=== PATIENT | male | born 1980 | race Caucasian/White ===

== ENCOUNTER 2020-02-04 16:14 | Emergency (ER) | payer OTHER, SELFPAY ==
[2020-02-04] MEDS ORDERED: HYDROCODONE/APAP 10/325 TAB ONE (17:11)
--- NOTE | 2020-02-04 17:42 | EDPHYS ---
Physician Documentation [facility] Name: Thang Matute Jr Age: 39 yrs Sex: Male : 1980 Arrival Date: 02/04/2020 Time: 16:15 Bed 24 Private MD: ED Physician Amada Eden HPI: 02/03 17:09 This 39 yrs old Male presents to ER via Wheelchair with complaints of Leg ma2 Pain. 17:09 The patient presents with an injury. The complaints affect the right calf. Onset: The ma2 symptoms/episode began/occurred suddenly, 2 hour(s) ago. Associated signs and symptoms: Pertinent negatives fever, numbness, swelling, tingling. Severity of symptoms: At their worst the symptoms were moderate, in the emergency department the symptoms are unchanged. The patient has not experienced similar symptoms in the past. was pushing and pulling at his boat when he felt a pop in right calf and has pain since then, no weakness or any other symptoms . Historical: - Allergies: 16:16 No Known Allergies; aa5 - Home Meds: 16:16 None [Active]; aa5 - PMHx: 16:16 None; aa5 - PSHx: 16:16 R knee; aa5 - Immunization history:: Adult Immunizations unknown. - Social history:: Smoking status: Patient reports the use of cigarette tobacco products, chewing tobacco. - Family history:: not pertinent. ROS: 17:09 Constitutional: Negative for fever, chills, and weight loss. ma2 17:09 All other systems are negative. Exam: 17:09 Constitutional: This is a well developed, well nourished patient who is awake, alert, ma2 and in no acute distress. Chest/axilla: Normal chest wall appearance and motion. Nontender with no deformity. No lesions are appreciated. Cardiovascular: Regular rate and rhythm with a normal S1 and S2. No gallops, murmurs, or rubs. Normal PMI, no JVD. No pulse deficits. Respiratory: Lungs have equal breath sounds bilaterally, clear to auscultation and percussion. No rales, rhonchi or wheezes noted. No increased work of breathing, no retractions or nasal flaring. Abdomen/GI: Soft, non-tender, with normal bowel sounds. No distension or tympany. No guarding or rebound. No evidence of tenderness throughout. Back: No spinal tenderness. No costovertebral tenderness. Full range of motion. MS/ Extremity: right calf is tender, no compartment, achilis tendon is intact, skin is wnl Pulses equal, no cyanosis. Neurovascular intact. Full, normal range of motion. Neuro: Awake and alert, GCS 15, oriented to person, place, time, and situation. Cranial nerves II-XII grossly intact. Motor strength 5/5 in all extremities. Sensory grossly intact. Cerebellar exam normal. Normal gait. Vital Signs: 16:16 Weight 113.4 kg (R); Height 6 ft. 2 in. (187.96 cm) (R); Pain 3/10; aa5 17:01 BP 119 / 90; Pulse 77; Resp 18; Temp 98.0; Pulse Ox 100% on NC; Pain 2/10; zb 18:00 BP 124 / 86; Pulse 66; Resp 16; Pulse Ox 99% on R/A; zb 16:16 Body Mass Index 32.10 (113.40 kg, 187.96 cm) aa5 MDM: 16:26 Patient medically screened. ma2 17:40 Differential diagnosis: closed fracture, contusion. Differential diagnosis: tendonitis. ma2 Data reviewed: vital signs, nurses notes. Counseling: I had a detailed discussion with the patient and/or guardian regarding: the historical points, exam findings, and any diagnostic results supporting the discharge/admit diagnosis, the presence of at least one elevated blood pressure reading (>120/80) during this emergency department visit, the need for outpatient follow up. Response to treatment: the patient's symptoms have markedly improved after treatment. 02/03 16:51 Order name: Tib Fib Right XRAY ma2 Administered Medications: 17:00 Drug: [place] 10 mg-325 mg 1 tabs Route: PO; zb 18:00 Follow up: Response: No adverse reaction; Pain is decreased zb Disposition: 02/04/20 17:41 Discharged to Home. Impression: Muscle spasm of calf - right. muscle tear . - Condition is Stable. - Discharge Instructions: Muscle Strain, [id number]. - Prescriptions for Diclofenac Sodium 75 mg Oral Tablet Sustained Release - take 1 tablet by ORAL route 2 times per day; 30 tablet. - Medication Reconciliation Form, Thank You Letter, Antibiotic Education, Prescription Opioid Use, Work release form form. - Follow up: Private Physician; When: Tomorrow; Reason: Continuance of care. Signatures: Dispatcher [employer] Analilia Joshua RN RN aa5 Amada Eden MD MD ma2 Sol Brasher RN RN zb Corrections: (The following items were deleted from the chart) 18:11 17:41 02/04/2020 17:41 Discharged to Home. Impression: Muscle spasm of calf - right. zb muscle tear . Condition is Stable. Prescriptions for Diclofenac Sodium 75 mg Oral Tablet Sustained Release - take 1 tablet by ORAL route 2 times per day; 30 tablet. and Forms are Medication Reconciliation Form, Thank You Letter, Antibiotic Education, Prescription Opioid Use. Follow up: Private Physician; When: Tomorrow; Reason: Continuance of care. ma2
--- NOTE | 2020-02-04 17:42 | ER ---
Nurse's Notes [facility] Name: Thang Matute Jr Age: 39 yrs Sex: Male : 1980 Arrival Date: 02/04/2020 Time: 16:15 Bed 24 Private MD: Diagnosis: Muscle spasm of calf-right. muscle tear Presentation: 02/03 16:16 Chief complaint: Patient states: "I felt a pop in my calf and it's been hurting since aa5 then and it's hard to walk". Pt c/o pain to right calf. 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 16:16 Onset of symptoms was February 04, 2020 at 12:30. aa5 16:16 Method Of Arrival: Wheelchair aa5 16:16 Acuity: PATRIC 4 aa5 17:00 Coronavirus screen: At this time, the client does not indicate any symptoms associated zb with coronavirus-19. Ebola Screen: No symptoms or risks identified at this time. Initial Sepsis Screen: Does the patient meet any 2 criteria? Does the patient have a suspected source of infection? No. Patient's initial sepsis screen is negative. Risk Assessment: Do you want to hurt yourself or someone else? Patient reports no desire to harm self or others. Historical: - Allergies: 16:16 No Known Allergies; aa5 - Home Meds: 16:16 None [Active]; aa5 - PMHx: 16:16 None; aa5 - PSHx: 16:16 R knee; aa5 - Immunization history:: Adult Immunizations unknown. - Social history:: Smoking status: Patient reports the use of cigarette tobacco products, chewing tobacco. - Family history:: not pertinent. Screenin:51 Abuse screen: Denies threats or abuse. Denies injuries from another. Nutritional zb screening: No deficits noted. Tuberculosis screening: No symptoms or risk factors identified. Fall Risk No fall in past 12 months (0 pts). No secondary diagnosis (0 pts). No IV (0 pts). Ambulatory Aid- Crutches/Cane/Walker (15 pts). Gait- Impaired (20 pts.). Mental Status- Oriented to own ability (0 pts). Total Garcia Fall Scale indicates Low Risk Score (25-44 pts). Fall prevention measures have been instituted. Side Rails Up X 2 Placed close to Nursing Station As available Patient and Family Educated on Fall Prevention Program and strategies. Assessment: 16:35 General: Appears in no apparent distress. uncomfortable, Behavior is calm, cooperative, zb appropriate for age. Pain: Complains of pain in right calf Pain does not radiate. Pain currently is 2 out of 10 on a pain scale. at worst was 10 out of 10 on a pain scale. Quality of pain is described as stabbing, Pain began suddenly, 4 hours ago. Is continuous, Aggravated by increased activity, repositioning, weight bearing. Neuro: Level of Consciousness is awake, alert, obeys commands, Oriented to person, place, time, situation. Cardiovascular: Heart tones S1 S2 present Capillary refill < 3 seconds in bilateral fingers Patient's skin is warm and dry. Respiratory: Airway is patent Respiratory effort is even, unlabored, Respiratory pattern is regular, symmetrical. GI: Abdomen is flat, non-distended, Bowel sounds present X 4 quads. : No signs and/or symptoms were reported regarding the genitourinary system. EENT: Reports ASL for form of communication . Derm: Skin is intact, is healthy with good turgor, Skin is normal. Musculoskeletal: Circulation, motion, and sensation intact. Swelling present in right calf area. 17:30 Reassessment: Patient appears in no apparent distress at this time. Patient and/or zb family updated on plan of care and expected duration. Pain level reassessed. Patient is alert, oriented x 3, equal unlabored respirations, skin warm/dry/pink. pt resting in bed. look more comfortable. 18:00 Reassessment: crutch teaching completed with ASL and demonstration returned. zb Vital Signs: 16:16 Weight 113.4 kg (R); Height 6 ft. 2 in. (187.96 cm) (R); Pain 3/10; aa5 17:01 BP 119 / 90; Pulse 77; Resp 18; Temp 98.0; Pulse Ox 100% on NC; Pain 2/10; zb 18:00 BP 124 / 86; Pulse 66; Resp 16; Pulse Ox 99% on R/A; zb 16:16 Body Mass Index 32.10 (113.40 kg, 187.96 cm) aa5 ED Course: 16:15 Patient arrived in ED. ag5 16:16 Arm band placed on. aa5 16:19 Sol Brasher, RN is Primary Nurse. zb 16:26 Amada Eden MD is Attending Physician. ma2 16:32 Triage completed. aa5 16:52 No provider procedures requiring assistance completed. zb 17:00 Patient has correct armband on for positive identification. Bed in low position. Call zb light in reach. Side rails up X 1. Door closed. Noise minimized. Warm blanket given. 17:02 X-ray(s) taken. zb 17:04 Ice pack to injury. zb 17:11 Tib Fib Right XRAY In Process Unspecified. EDMS 18:10 Patient did not have IV access during this emergency room visit. zb Administered Medications: 17:00 Drug: [place] 10 mg-325 mg 1 tabs Route: PO; zb 18:00 Follow up: Response: No adverse reaction; Pain is decreased zb Outcome: 17:41 Discharge ordered by MD. ma2 18:10 Discharged to home via wheelchair, with crutches. zb 18:10 Condition: stable 18:10 Discharge instructions given to patient, Instructed on discharge instructions, follow up and referral plans. medication usage, crutch walking, Demonstrated understanding of instructions, follow-up care, medications, crutch walking, Prescriptions given X 1. 18:11 Patient left the ED. zb Signatures: Dispatcher [employer] Analilia Joshua, RN RN Amada Kinney MD MD ma2 [place], [place] 5 Sol Brasher RN RN zb
--- NOTE | 2020-02-04 18:01 | RAD REPORT ---
EXAM DESCRIPTION: RAD - Tib Fib Right - 02/04/2020 5:24 pm CLINICAL HISTORY: PAIN COMPARISON: No comparisons FINDINGS: No fracture is identified. There is no dislocation or periosteal reaction noted. No acute or suspicious bony finding. No foreign body or other soft tissue abnormality. IMPRESSION: Negative right tibia & fibula examination.
== END 2020-02-04 18:11 | disposition home or self-care (01) ==
LOC: ER 16:14
DX: M62.831 Muscle spasm of calf (principal); S86.911A Strain of unspecified muscle(s) and tendon(s) at lower leg level, right leg, initial encounter; F17.210 Nicotine dependence, cigarettes, uncomplicated
CPT/HCPCS: 99284

== ENCOUNTER 2021-04-26 00:01 | Emergency (ER) | payer SELFPAY ==
[2021-04-26] MEDS ORDERED: ALBUTEROL INHALER 60 PUFF/8 GM IH ONE (00:46)
[2021-04-26 00:50] LABS: Protime INR 1.04
[2021-04-26 00:51] LABS: Hematocrit 42.3 % (39.6-49.0); MPV 9.9 fL (7.6-11.3); RBC Red Blood Cell Count 4.78 M/uL (4.33-5.43)
[2021-04-26 00:52] LABS: Absolute Lymphocytes (CBC) 1.7 K/uL (0.7-4.9)
[2021-04-26 01:04] LABS: Albumin 4.2 g/dL (3.4-5.0); Bilirubin Direct 0.1 mg/dL (0-0.2); Bilirubin Total 0.3 mg/dL (0.2-1.0); Magnesium 2.2 mg/dL (1.8-2.4); Potassium 4.1 mmol/L (3.5-5.1); Protein, Total 7.9 g/dL (6.4-8.2); Troponin High Sensitivity 6.8 pg/mL (<58.9)
[2021-04-26 01:19] LABS: SARS-COV-2 RT PCR NEGATIVE (NEGATIVE)
[2021-04-26 01:50] LABS: Blood Morphology Comment NOT SEEN (NOT SEEN); Platelet Estimate ADEQ
[2021-04-26] MEDS ORDERED: AZITHROMYCIN 500 MG INJ IVPB ONE (03:17)
[2021-04-26] MEDS ORDERED: CEFTRIAXONE 1000 MG/VIAL ONE (03:17)
[2021-04-26] MEDS ORDERED: NA CHLORIDE 0.9% 250 ML ONE (03:17)
--- NOTE | 2021-04-26 03:58 | ER ---
Nurse's Notes [facility] Name: Thang Matute Jr Age: 41 yrs Sex: Male : 1980 Arrival Date: 04/26/2021 Time: 00:03 Bed 7 Private MD: Diagnosis: Pneumonia, unspecified organism Presentation: 04/26 00:19 Chief complaint: Patient states: difficulty breathing with a cough that gets worse when st1 he lays down and chest tightness. Coronavirus screen: Vaccine status: Patient reports being unvaccinated. Client denies travel out of the [place] in the last 14 days. Ebola Screen: No symptoms or risks identified at this time. Initial Sepsis Screen: Does the patient meet any 2 criteria? No. Patient's initial sepsis screen is negative. Does the patient have a suspected source of infection? No. Patient's initial sepsis screen is negative. Risk Assessment: Do you want to hurt yourself or someone else? Patient reports no desire to harm self or others. Onset of symptoms was April 23, 2021. 00:19 Method Of Arrival: Ambulatory st1 00:19 Acuity: PATRIC 3 st1 Triage Assessment: 00:23 General: Appears in no apparent distress. comfortable, well groomed, well developed. st1 General: Behavior is calm, cooperative. Pain: Denies pain. Respiratory: Reports shortness of breath at rest Onset: The symptoms/episode began/occurred gradually, the patient has moderate shortness of breath. Historical: - Allergies: 00:21 No Known Allergies; st1 - PMHx: 00:21 Deaf; st1 - PSHx: 00:21 Knee Replacement; st1 - Immunization history:: Client reports having NOT received the Covid vaccine. Flu vaccine is not up to date. - Social history:: Smoking status: Patient denies any tobacco usage or history of. Patient/guardian denies using alcohol, street drugs, IV drugs. Screenin:24 Abuse screen: Denies threats or abuse. Nutritional screening: No deficits noted. st1 Tuberculosis screening: No symptoms or risk factors identified. Fall Risk None identified. No fall in past 12 months (0 pts). No secondary diagnosis (0 pts). IV access (20 points). Ambulatory Aid- None/Bed Rest/Nurse Assist (0 pts). Gait- Normal/Bed Rest/Wheelchair (0 pts) Mental Status- Oriented to own ability (0 pts). Total Garcia Fall Scale indicates No Risk (0-24 pts). Assessment: 00:06 Reassessment: Assessment done with blender machine operator - [place] [id number]. al4 00:24 Cardiovascular: No deficits noted. Rhythm is regular. Respiratory: Airway is patent st1 Respiratory effort is even, unlabored, 01:20 Reassessment: Patient is alert, oriented x 3, equal unlabored respirations, skin al4 warm/dry/pink. 03:33 Reassessment: digital circuit designer was used for each interaction with the patient st1 including but not limited to the interaction with the physician. 04:37 Reassessment: Patient is alert, oriented x 3, equal unlabored respirations, skin al4 warm/dry/pink. 04:55 Reassessment: Discharge instructions and follow up information given to patient using al4 blender machine operator - Ginny Bolivar [id number]. Vital Signs: 00:19 BP 139 / 93; Pulse 90; Resp 16; Temp 98.9; Pulse Ox 99% ; Weight 102.06 kg; Height 6 st1 ft. 2 in. (187.96 cm); Pain 0/10; 00:30 BP 119 / 72; Pulse 80; Resp 17 S; Pulse Ox 95% on R/A; al4 01:15 BP 114 / 89; Pulse 77; Resp 19 S; Pulse Ox 95% on R/A; al4 03:35 BP 111 / 67; Pulse 70; Resp 12 S; Pulse Ox 97% on R/A; al4 04:30 BP 99 / 69; Pulse 79; Resp 23 S; Pulse Ox 95% on R/A; al4 04:36 BP 121 / 54; al4 00:19 Body Mass Index 28.89 (102.06 kg, 187.96 cm) st1 ED Course: 00:03 Patient arrived in ED. wm 00:07 Moses Baum MD is Attending Physician. 7 00:19 Nadeen Newman, BETTY is Primary Nurse. st1 00:21 Triage completed. st1 00:23 Arm band placed on right wrist. st1 00:24 Patient has correct armband on for positive identification. Bed in low position. Call st1 light in reach. Side rails up X 1. Pulse ox on. NIBP on. 00:29 Inserted saline lock: 20 gauge in right antecubital area, using aseptic technique. st1 00:32 Basic Metabolic Panel Sent. st1 00:34 XRAY Chest (1 view) In Process Unspecified. EDMS 00:34 Rapid Strep Sent. al4 00:35 CBC with Diff Sent. st1 00:35 LFT's Sent. st1 00:35 Magnesium Sent. st1 00:35 NT PRO-BNP Sent. st1 00:35 Troponin HS Sent. st1 00:35 PT-INR Sent. st1 00:35 CBC with Automated Diff Sent. st1 00:35 Basic Metabolic Panel Sent. st1 00:35 COVID-19/FLU A+B (Document "Date of Onset" if Symptomatic) Sent. st1 01:27 Notified ED physician of a critical lab result(s). D-Dimer 676. lp1 01:51 CT Chest For PE Angio In Process Unspecified. EDMS 03:53 Blood Culture Adult (2) Sent. al4 03:54 Yousuf Casillas MD is Referral Physician. [facility] 03:54 Isaiah Guevara MD is Referral Physician. [facility] 04:55 No provider procedures requiring assistance completed. IV discontinued, intact, al4 bleeding controlled, No redness/swelling at site. Pressure dressing applied. Administered Medications: 00:45 Drug: Albuterol HFA Inhaler 2 puffs {Note: clarified inhaler with physician before al4 administration .} Route: Inhalation; 03:35 Drug: Rocephin (cefTRIAXone) 1 grams Route: IV; Rate: per protocol; Site: right al4 antecubital; 04:39 Follow up: Response: No adverse reaction; IV Status: Completed infusion al4 03:35 Drug: AZITHromycin 500 mg Route: IVPB; Infused Over: 1 hrs; Site: right antecubital; al4 04:39 Follow up: Response: No adverse reaction; IV Status: Completed infusion al4 Outcome: 03:56 Discharge ordered by . 7 04:55 Discharged to home ambulatory. al4 04:55 Condition: stable 04:55 Discharge instructions given to patient, Instructed on discharge instructions, follow up and referral plans. medication usage. 04:56 Patient left the ED. al4 Signatures: Dispatcher [employer] EDFL Nalini Geiger RN RN lp1 Moses Baum MD MD [id number] Katiuska Gonzáles Alexis al4 Nadeen Newman, RN RN st1 Corrections: (The following items were deleted from the chart) 01:20 01:19 D-DIMER+COAG.LAB.BRZ drawn and sent. al4 EDMS
--- NOTE | 2021-04-26 03:58 | EDPHYS ---
Physician Documentation [facility] Name: Thang Matute Jr Age: 41 yrs Sex: Male : 1980 Arrival Date: 04/26/2021 Time: 00:03 Bed 7 Private MD: ED Physician Moses Baum HPI: 04/26 00:23 This 41 yrs old Male presents to ER via Ambulatory with complaints of Breathing mh7 Difficulty. 00:24 The patient or guardian reports cough, that is intermittent, described as moderate, mh7 with no sputum, difficulty breathing. Onset: The symptoms/episode began/occurred 3 day(s) ago. Severity of symptoms: At their worst the symptoms were moderate, yesterday, in the emergency department the symptoms are unchanged. Modifying factors: The symptoms are alleviated by nothing, the symptoms are aggravated by nothing. Associated signs and symptoms: Pertinent positives: chest pain, with cough, Pertinent negatives: diarrhea, ear ache, fever, nausea, rhinorrhea, sore throat, vomiting. Historical: - Allergies: 00:21 No Known Allergies; st1 - PMHx: 00:21 Deaf; st1 - PSHx: 00:21 Knee Replacement; st1 - Immunization history:: Client reports having NOT received the Covid vaccine. Flu vaccine is not up to date. - Social history:: Smoking status: Patient denies any tobacco usage or history of. Patient/guardian denies using alcohol, street drugs, IV drugs. ROS: 00:24 Constitutional: Negative for fever, chills, and weight loss, Eyes: Negative for injury, mh7 pain, redness, and discharge, ENT: Negative for injury, pain, and discharge, Neck: Negative for injury, pain, and swelling, Abdomen/GI: Negative for abdominal pain, nausea, vomiting, diarrhea, and constipation, Back: Negative for injury and pain, : Negative for injury, bleeding, discharge, and swelling, MS/Extremity: Negative for injury and deformity, Skin: Negative for injury, rash, and discoloration, Neuro: Negative for headache, weakness, numbness, tingling, and seizure, Psych: Negative for depression, anxiety, suicide ideation, homicidal ideation, and hallucinations, Allergy/Immunology: Negative for hives, rash, and allergies, Endocrine: Negative for neck swelling, polydipsia, polyuria, polyphagia, and marked weight changes, Hematologic/Lymphatic: Negative for swollen nodes, abnormal bleeding, and unusual bruising. Exam: 00:24 Constitutional: This is a well developed, well nourished patient who is awake, alert, mh7 and in no acute distress. Head/Face: Normocephalic, atraumatic. Eyes: Pupils equal round and reactive to light, extra-ocular motions intact. Lids and lashes normal. Conjunctiva and sclera are non-icteric and not injected. Cornea within normal limits. Periorbital areas with no swelling, redness, or edema. Neck: Trachea midline, no thyromegaly or masses palpated, and no cervical lymphadenopathy. Supple, full range of motion without nuchal rigidity, or vertebral point tenderness. No Meningismus. Chest/axilla: Normal chest wall appearance and motion. Nontender with no deformity. No lesions are appreciated. Cardiovascular: Regular rate and rhythm with a normal S1 and S2. No gallops, murmurs, or rubs. Normal PMI, no JVD. No pulse deficits. 00:24 Abdomen/GI: Soft, non-tender, with normal bowel sounds. No distension or tympany. No guarding or rebound. No evidence of tenderness throughout. Back: No spinal tenderness. No costovertebral tenderness. Full range of motion. Skin: Warm, dry with normal turgor. Normal color with no rashes, no lesions, and no evidence of cellulitis. MS/ Extremity: Pulses equal, no cyanosis. Neurovascular intact. Full, normal range of motion. Neuro: Awake and alert, GCS 15, oriented to person, place, time, and situation. Cranial nerves II-XII grossly intact. Motor strength 5/5 in all extremities. Sensory grossly intact. Cerebellar exam normal. Normal gait. Psych: Awake, alert, with orientation to person, place and time. Behavior, mood, and affect are within normal limits. 00:24 Respiratory: the patient does not display signs of respiratory distress, Respirations: prolonged exhalation, that is mild, Breath sounds: rhonchi, that are mild, are scattered, Respiratory rate: 16 00:35 ECG was reviewed by the Attending Physician. [facility] Vital Signs: 00:19 BP 139 / 93; Pulse 90; Resp 16; Temp 98.9; Pulse Ox 99% ; Weight 102.06 kg; Height 6 st1 ft. 2 in. (187.96 cm); Pain 0/10; 00:30 BP 119 / 72; Pulse 80; Resp 17 S; Pulse Ox 95% on R/A; al4 01:15 BP 114 / 89; Pulse 77; Resp 19 S; Pulse Ox 95% on R/A; al4 03:35 BP 111 / 67; Pulse 70; Resp 12 S; Pulse Ox 97% on R/A; al4 04:30 BP 99 / 69; Pulse 79; Resp 23 S; Pulse Ox 95% on R/A; al4 04:36 BP 121 / 54; al4 00:19 Body Mass Index 28.89 (102.06 kg, 187.96 cm) st1 MDM: 03:47 Differential Diagnosis: Bronchitis Influenza Upper Respiratory Infection Viral Syndrome mh7 Pneumonia. Data reviewed: vital signs, nurses notes, lab test result(s), cardiac enzymes, CBC, electrolytes, EKG, radiologic studies, CT scan, plain films. Data interpreted: Pulse oximetry: on room air is 97 %. Interpretation: normal. Counseling: I had a detailed discussion with the patient and/or guardian regarding: the historical points, exam findings, and any diagnostic results supporting the discharge/admit diagnosis, lab results, radiology results. Response to treatment: the patient's symptoms have resolved after treatment, the patient's blood pressure is in an acceptable range, mental status has returned to baseline, the patient no longer shows bradycardia, the patient is not short of breath, the patient is not tachycardic, the patient's pain is gone, the patient's temperature has normalized. ED course: Feels better, well-appearing, no acute distress, vital signs stable, no focal neurologic deficits. No chest pain, shortness of breath, nausea, vomiting, or other complaints. Discussed all test results and findings with the patient and answered all his questions including results of CT chest with moderate-sized airspace lung opacities at the right upper lobe anterior segment right middle lobe with most likely possibility of atypical infection or subsegmental atelectasis. Also markedly hyperdense left lobe lateral segment liver and mildly hyperdense right lobe posterior segment of liver with possible causes of hemangioma or metastasis and also presence of diffuse fatty liver. Explained to patient recommendations for CT abdomen pelvis liver phase with and without contrast. Patient declines any further evaluation or treatment at this time request to be discharged in ED. He stated that he will follow-up patient. Recommended return to ED if worsening symptoms or other urgent concerns.. 03:56 Patient medically screened. [facility] 04/26 00:20 Order name: Basic Metabolic Panel [facility] 04/26 00:20 Order name: CBC with Diff [facility] 04/26 00:20 Order name: LFT's; Complete Time: :14 [facility] 04/26 00:20 Order name: Magnesium; Complete Time: : [facility] 04/26 00:20 Order name: NT PRO-BNP; Complete Time: : [facility] 04/26 00:20 Order name: PT-INR; Complete Time: : [facility] 04/26 00:20 Order name: Troponin HS; Complete Time: [facility] 04/26 00:20 Order name: COVID-19/FLU A+B (Document "Date of Onset" if Symptomatic); Complete Time: [facility] 04/26 00:20 Order name: Basic Metabolic Panel; Complete Time: :14 [facility] 04/26 00:20 Order name: CBC with Automated Diff; Complete Time: 02:13 [facility] 04/26 00:21 Order name: Rapid Strep; Complete Time: 01:49 [facility] 04/26 01:21 Order name: D-Dimer; Complete Time: :29 [facility] 04/26 01:21 Order name: Manual Differential; Complete Time: 02:13 [facility] 04/26 00:20 Order name: XRAY Chest (1 view) [facility] 04/26 00:20 Order name: EKG; Complete Time: 00:20 [facility] 04/26 00:20 Order name: Cardiac monitoring; Complete Time: 00:34 [facility] 04/26 00:20 Order name: EKG - Nurse/Tech; Complete Time: 00:34 [facility] 04/26 00:20 Order name: IV Saline Lock; Complete Time: 00:32 [facility] 04/26 00:20 Order name: Labs collected and sent; Complete Time: 00:32 [facility] 04/26 00:20 Order name: O2 Per Protocol; Complete Time: 00:34 [facility] 04/26 00:20 Order name: O2 Sat Monitoring; Complete Time: 00:34 [facility] 04/26 01:30 Order name: CT Chest For PE Angio 04/26 01:31 Order name: Throat Culture [facility] 04/26 03:08 Order name: Blood Culture Adult (2) [facility] EC:35 Rate is 79 beats/min. Rhythm is regular, Normal Sinus Rhythm. QRS [place] is Normal. ND mh7 interval is normal. QRS interval is normal. QT interval is normal. No Q waves. T waves are Flattened in leads V1, V2. No ST changes noted. Clinical impression: NSR w/ Non-specific ST/T Changes. Administered Medications: 00:45 Drug: Albuterol HFA Inhaler 2 puffs {Note: clarified inhaler with physician before al4 administration .} Route: Inhalation; 03:35 Drug: Rocephin (cefTRIAXone) 1 grams Route: IV; Rate: per protocol; Site: right al4 antecubital; 04:39 Follow up: Response: No adverse reaction; IV Status: Completed infusion al4 03:35 Drug: AZITHromycin 500 mg Route: IVPB; Infused Over: 1 hrs; Site: right antecubital; al4 04:39 Follow up: Response: No adverse reaction; IV Status: Completed infusion al4 Disposition Summary: 04/26/21 03:56 Discharge Ordered Location: Home [facility] Problem: new [facility] Symptoms: have improved [facility] Condition: Stable [facility] Diagnosis - Pneumonia, unspecified organism [facility] Followup: [facility] - With: Private Physician - When: 1 - 2 days - Reason: Worsening of condition, Recheck today's complaints, Continuance of care, Re-evaluation by your physician Followup: [facility] - With: Yousuf Casillas MD - When: 1 - 2 days - Reason: Worsening of condition, Recheck today's complaints, Continuance of care, Re-evaluation by your physician Followup: [facility] - With: Isaiah Guevara MD - When: 1 - 2 days - Reason: Worsening of condition, Recheck today's complaints, Continuance of care, Re-evaluation by your physician Discharge Instructions: - Discharge Summary Sheet [facility] - Community-Acquired Pneumonia, Adult, [id number] [facility] Forms: - Medication Reconciliation Form [facility] - Thank You Letter 7 - Antibiotic Education 7 - Prescription Opioid Use 7 - Work release form nc Prescriptions: - albuterol sulfate 90 mcg/actuation Inhalation HFA aerosol inhaler - inhale 2 puff by INHALATION route every 6 hours As needed; 1 Inhaler; Refills: mh7 0, Product Selection Permitted - Tessalon Perles 100 mg Oral Capsule - take 1 capsule by ORAL route every 8 hours As needed; 20 capsule; Refills: 0, mh7 Product Selection Permitted - Zithromax Z-Mikael 250 mg Oral Tablet - take 1 tablet by ORAL route as directed for 5 days Day 1 - take two (2) tablets mh7 one time. Day 2, 3, 4 , 5 take one (1) tablet once daily.; 6 tablet; Refills: 0, Product Selection Permitted Signatures: Dispatcher [employer] Moses Roach MD MD [facility] Mk Almeida al4 Nadeen Newman RN RN st1 Corrections: (The following items were deleted from the chart) 01:20 01:16 D-DIMER+COAG.LAB.BRZ ordered. EDOR EDMS
[2021-04-26 05:02] VITALS: TEMP 98.9
[2021-04-26 05:06] VITALS: BP 99/69; O2SAT 95
--- NOTE | 2021-04-26 08:48 | EKG ---
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
--- NOTE | 2021-04-26 13:20 | RAD REPORT ---
EXAM DESCRIPTION: CT - Chest For Pe Angio - 04/26/2021 6:36 am CLINICAL HISTORY: Shortness of Breath; Cough COMPARISON: Chest 1 View AP 04/26/2021 at 12:32 AM TECHNIQUE: Chest CTA axial images acquired with IV contrast. Coronal and sagittal CTA MIPs and MPRs created. Exam performed according to departmental dose-optimization program which includes automated exposure control, adjustment of mA and/or kV according to patient size, and/or use of iterative recon struction technique. FINDINGS: Heart size normal. No pericardial effusion. Thoracic aorta unremarkable without evidence of dissection, aneurysm, or atherosclerotic plaque. No evidence of pulmonary embolism. Central tracheobronchial tree unremarkable. Moderate-sized airspace lung opacities at right upper lobe anterior segment and right middle lobe. No pleural effusion or pneumothorax. Bones unremarkable. Mild right hemidiaphragm elevation. Moderate nearly-diffuse fatty infiltration of liver. Partially-imaged, markedly hyperdense, left lobe lateral segment, liver lesion measuring 1.9 x 1.8 cm (axial series 401, image 1). Mildly hyperdense, right lobe posterior segment, liver lesion measuring 1.6 x 1.5 cm (axial series 40 1, image 17). IMPRESSION: 1. Moderate-sized airspace lung opacities at right upper lobe anterior segment and right middle lobe. Causes include pulmonary edema, subsegmental atelectasis, and atypical infection (including viral & C OVID). COVID-19 Pneumonia Imaging Classification: Indeterminate Appearance \X201C\Imaging features can be seen with (COVID-19 or viral) pneumonia, though are nonspecific and ca n occur with a variety of infectious and noninfectious processes. PneInd\X201D\ 2. No CT evidence of pulmonary embolism. 3. Partially-imaged, markedly hyperdense, left lobe lateral segment, liver lesion measuring 1.9 x 1.8 cm. Mildly hyperdense, right lobe posterior segment, liver lesion measuring 1.6 x 1.5 cm. Causes include hemangiomas or metastases. Follow up CT abdomen (liver 3 phase) without and with contrast recommended. 4. Moderate nearly-diffuse fatty infiltration of liver. Electronically signed by: Adam Franklin MD 04/26/2021 2:44 AM LEARNING SPECIALIST Due to temporary technical issues with the PACS/Fluency reporting system, reports are being signed by the in house radiologist without review as a courtesy to ensure prompt reporting. The interpreting r adiologist is fully responsible for the content of the report
--- NOTE | 2021-04-26 13:21 | RAD REPORT ---
EXAM DESCRIPTION: RAD - Chest Single View - 04/26/2021 12:35 am CLINICAL HISTORY: COUGH TECHNIQUE: Frontal view of the chest. COMPARISON: No relevant prior studies available. FINDINGS: Lungs: Unremarkable. No consolidation. Pleural space: Unremarkable. No pneumothorax. Heart: Unremarkable. No cardiomegaly. Mediastinum: Unremarkable. Bones/joints: Unremarkable. IMPRESSION: No acute disease. Electronically signed by: Hansel Rao MD 04/26/2021 1:51 AM CAR REPAIRER Due to temporary technical issues with the PACS/Fluency reporting system, reports are being signed by the in house radiologist without review as a courtesy to ensure prompt reporting. The interpreting r adiologist is fully responsible for the content of the report
== END 2021-04-26 04:56 | disposition home or self-care (01) ==
LOC: ER 00:01
DX: J18.9 Pneumonia, unspecified organism (principal); Z20.822 Contact with and (suspected) exposure to COVID-19
CPT/HCPCS: 0240U; 36415; 71045; 71275; 80048; 80076; 83735; 83880; 84484; 85025; 85379; 85610; 87040; 87070; 87081; 93005; 96365; 96368; 99284; J0456; J7050; Q9967

== ENCOUNTER 2023-11-27 09:22 | Emergency (ER) | payer BC, SELFPAY ==
--- NOTE | 2023-11-27 11:32 | RAD REPORT ---
EXAMINATION: XR RIGHT SHOUDLER CLINICAL INDICATION: Male, 43 years old. PAIN RIGHT TECHNIQUE: Two view radiograph of the right shoulder were obtained. COMPARISON: No prior exam. FINDINGS: No bone or joint abnormality detected. Mild AC joint degenerative changes. IMPRESSION: No acute osseous abnormality. Mild AC joint degenerative changes.
--- NOTE | 2023-11-27 11:43 | RAD REPORT ---
EXAM: Hand Right 3 View HISTORY: [facility] MAIN PAIN Bed Name: 8 COMPARISON: None TECHNIQUE: 3 radiographic views of the RIGHT hand submitted. FINDINGS: Mildly comminuted fracture along the base of the thumb distal phalanx, with intra-articular extension along the lateral aspect of the base. Surrounding soft tissue swelling. No dislocation. Joint alignment is maintained. No soft tissue swelling is seen.. No significant degenerative changes are present. IMPRESSION: Mildly comminuted fracture of the base of the thumb distal phalanx with interarticular ex tension.
--- NOTE | 2023-11-27 11:44 | RAD REPORT ---
EXAMINATION: XR LEFT SHOULDER CLINICAL INDICATION: Male, 43 years old. PAIN TECHNIQUE: Internal and external AP view radiograph of the left shoulder were obtained. COMPARISON: No prior exam. FINDINGS: No evidence of fracture or dislocation. Normal alignment. No evidence of arthropathy or oth er focal bone lesion. Soft tissues are unremarkable. IMPRESSION: No acute or significant abnormalities.
--- NOTE | 2023-11-27 12:09 | EDPHYS ---
Physician Documentation [facility] Name: Thang Matute Jr Age: 43 yrs Sex: Male : 1980 Arrival Date: 11/27/2023 Time: 09:22 Bed 8 Private MD: ED Physician Stanislaw Rivera HPI: 11/26 09:46 This 43 yrs old Male presents to ER via Ambulatory with complaints of Shoulder Injury - rn BL. 09:46 The patient or guardian complains of pain, that is acute. right shoulder, left rn shoulder, right clavicle and left clavicle. Onset: The symptoms/episode began/occurred 2 day(s) ago. Modifying factors: the symptoms are alleviated by nothing. The symptoms are aggravated by rotation of arm. Associated signs and symptoms: Pertinent negatives: abdominal pain, chest pain, diaphoresis, dyspnea, neck pain, tingling. Severity of symptoms: At their worst the symptoms were mild, in the emergency department the symptoms are unchanged. The patient has not experienced similar symptoms in the past. Patient states was arrested 2 days ago, was placed in handcuffs for a long time, sustained trauma to his face/head and reports shoulder pain bilaterally since then. Also reports right thumb pain and swelling. Patient states he fell and hit a pole with his face. Taken to emergency room and evaluated for head trauma and was ultimately cleared and taken to retirement. Reports bilateral shoulder pain since then, does not feel like it is broken but has painful range of motion lifting arms above his head. No chest pain or abdominal pain.. Historical: - Allergies: 10:11 No Known Allergies; aa5 - PMHx: 09:39 Deaf; bp - PSHx: 09:39 knee replacement; bp - Immunization history:: Adult Immunizations up to date. - Infectious Disease History:: Denies. - Social history:: Smoking status: unknown. - Family history:: not pertinent. - Hospitalizations: : No recent hospitalization is reported. ROS: 09:46 Constitutional: Negative for fever, chills, and weight loss, Eyes: Negative for injury, rn pain, redness, and discharge, Neck: Negative for injury, pain, and swelling, Cardiovascular: Negative for chest pain, palpitations, and edema, Respiratory: Negative for shortness of breath, cough, wheezing, and pleuritic chest pain, Abdomen/GI: Negative for abdominal pain, nausea, vomiting, diarrhea, and constipation, Back: Negative for injury and pain, MS/Extremity: Positive for bilateral shoulder pain Skin: Negative for injury, rash, and discoloration, Neuro: Negative for headache, weakness, numbness, tingling, and seizure, Exam: 09:46 Constitutional: This is a well developed, well nourished patient who is awake, alert, rn and in no acute distress. Ambulatory to triage without assistance Head/Face: Normocephalic, left periorbital ecchymosis and swelling Eyes: Pupils equal round and reactive to light, extra-ocular motions intact. Neck: Trachea midline, no masses palpated, and no cervical lymphadenopathy. Supple, full range of motion without nuchal rigidity, or vertebral point tenderness. No Meningismus. Cardiovascular: Regular rate and rhythm. No pulse deficits. MS/ Extremity: Pulses equal, no cyanosis. Mild tenderness bilateral anterior shoulders along distal clavicles. No gross deformity. Full range of motion except at extreme arm elevation above head. Neuro: Awake and alert, GCS 15, oriented to person, place, time, and situation. Cranial nerves II-XII grossly intact. Motor strength 5/5 in all extremities. Sensory grossly intact. Cerebellar exam normal. Normal gait. Vital Signs: 09:38 BP 127 / 87; Pulse 75; Resp 16; Temp 98; Pulse Ox 97% ; bp 12:00 BP 129 / 88; Pulse 78; Resp 18 S; Pulse Ox 97% on R/A; aa5 MDM: 09:26 Patient medically screened. rn 12:07 Differential diagnosis: humeral head fracture, glenoid fracture, DJD, tendonitis, Thumb rn fracture. Data reviewed: vital signs, nurses notes, radiologic studies, plain films, and as a result, I will discharge patient. Counseling: I had a detailed discussion with the patient and/or guardian regarding the historical points, exam findings, and any diagnostic results supporting the discharge/admit diagnosis, radiology results, the need for outpatient follow up, to return to the emergency department if symptoms worsen or persist or if there are any questions or concerns that arise at home. Special discussion: I discussed with the patient/guardian in detail that at this point there is no indication for admission to the hospital. It is understood, however, that if the symptoms persist or worsen the patient needs to return immediately for re-evaluation. Based on the history and exam findings, there is no indication for further emergent testing or inpatient evaluation. I discussed with the patient/guardian the need to see the orthopedic surgeon for further evaluation of the symptoms. ED course: patient with mildly displaced distal phalanx fracture of the right thumb on x-ray per my interpretation. Placed in finger splint. Will follow-up with orthopedics for further recommendations. X-rays bilateral shoulders negative for acute fracture.. 11/26 09:40 Order name: XRAY Shoulder RIGHT 2 view; Complete Time: 11:52 rn 11/26 09:40 Order name: XRAY Shoulder LEFT 2 view; Complete Time: 11:52 rn 11/26 09:40 Order name: XRAY Hand RIGHT 3 View; Complete Time: : rn 11/26 11:52 Order name: Finger Splint: right thumb; Complete Time: 12:27 rn Administered Medications: No medications were administered Disposition Summary: 11/27/23 12:08 Discharge Ordered Notes: Location: Home rn Problem: new rn Symptoms: have improved rn Condition: Stable rn Diagnosis - Strain of muscle(s) and tendon(s) of the rotator cuff of left shoulder rn - Strain of muscle(s) and tendon(s) of the rotator cuff of right shoulder rn - Displaced fracture of distal phalanx of right thumb rn Followup: rn - With: Bassem Giron MD - When: As needed - Reason: Recheck today's complaints, Re-evaluation by your physician Discharge Instructions: - Discharge Summary Sheet rn - Thumb Fracture rn - Shoulder Sprain rn Forms: - Medication Reconciliation Form rn - Antibiotic industrial design intern - Prescription Opioid Use rn - Patient Portal Instructions rn - Leadership Thank You Letter rn - Work release form bp Prescriptions: - Tramadol 50 mg Oral Tablet - take 1 tablet ORAL route every 8 hours as needed; 12 tablet; Refills: 0, rn Product Selection Permitted Signatures: Dispatcher [employer] EDMS Stanislaw Rivera MD MD rn Calderon, Audri, RN RN aa5 Marvel Holt RN RN bp Corrections: (The following items were deleted from the chart) 09:40 09:40 Shoulder Right 2 View+RAD.RAD.BRZ ordered. EDMS EDMS
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
[2023-11-27 12:46] VITALS: BP 127/87; TEMP 98; O2SAT 97
== END 2023-11-27 12:41 | disposition home or self-care (01) ==
LOC: ER 09:22
PROC: 2W3JX1Z Immobilization of Right Finger using Splint (ICD-10-PCS; principal; 2023-11-27)
DX: S46.011A Strain of muscle(s) and tendon(s) of the rotator cuff of right shoulder, initial encounter (principal); S46.012A Strain of muscle(s) and tendon(s) of the rotator cuff of left shoulder, initial encounter; S62.521A Displaced fracture of distal phalanx of right thumb, initial encounter for closed fracture
CPT/HCPCS: 99283